=== PATIENT | male | born 1970 | race Caucasian/White ===

== ENCOUNTER 2018-03-08 14:48 | Emergency (ER) | payer MEDICAID ==
[~2018-03-08] VITALS: Ht 170.2 cm; Wt 82.0 kg
[2018-03-08] MEDS ORDERED: LABE100T5 PO (15:02)
[2018-03-08] MEDS ORDERED: LISI-186 PO (15:03)
[2018-03-08] MEDS ORDERED: ASPIRIN 81MG TABLET PO ONE (15:45)
[2018-03-08 17:03] LABS: BASOPHILS % 0.4 % (0.0-2.0); EOSINOPHILS % 2.8 % (0.0-5.0); HEMATOCRIT. 41.1 % (42.0-52.0); HEMOGLOBIN. 14.2 g/dL (14.0-18.0); LYMPHOCYTES % 26.1 % (20.0-50.0); MEAN CORPUSCULAR HEMOGLOBIN 32.6 pg (28.0-32.0); MEAN CORPUSCULAR VOLUME 94.2 fL (80.0-94.0); MEAN PLATELET VOLUME 7.9 fl (7.4-10.4); MONOCYTES % 9.7 % (2.0-8.0); PLATELET 208 x1000/uL (130-400); RED BLOOD CELL COUNT 4.36 mill/uL (4.7-6.1); RED CELL DISTRIBUTION WIDTH 13.5 % (11.6-14.6)
[2018-03-08 17:13] LABS: CHLORIDE 108 mEq/L (98-107)
[2018-03-08 17:14] LABS: D-DIMER 0.29 mg/L FEU (<0.50); PARTIAL THROMBOPLASTIN TIME 29.4 sec (23.4-31.0); PROTHROMBIN TIME 10.2 sec (9.1-11.1)
[2018-03-08] MEDS ORDERED: ATOR40TA70 PO (19:13)
[2018-03-08] MEDS ORDERED: CARV12.545 PO (19:13)
[2018-03-08 21:01] VITALS: BP 158/85
== END 2018-03-08 21:39 | disposition left against medical advice (07) ==
LOC: ER 15:35 → EDBEDREQ 17:41 → ER 21:39 → CANBEDREQ 03-09 01:59
DX: R06.02 Shortness of breath (principal); R06.09 Other forms of dyspnea; I11.0 Hypertensive heart disease with heart failure; I50.9 Heart failure, unspecified
CPT/HCPCS: 36415; 71045; 83880; 84484; 85379; 93005; 99285